=== PATIENT | female | born 1980 | race Caucasian/White ===

== ENCOUNTER 2016-09-29 20:45 | Emergency (ER) | payer OTHER, SELFPAY ==
--- NOTE | ~2016-09-29 | ER ---
PATIENT'S NAME: AIME POTTS [facility] AGE: 36 Y [address] ROOM: [place] [address] LOCATION: [facility] ADMIT DATE: 09/29/2016 ER/Outpatient Report DISCHARGE DATE: 09/29/2016 FAMILY PHYSICIAN: Megan Ellis ATTENDING PHYSICIAN: Bernabe Burgos TIME SEEN: 2100 hours. CHIEF COMPLAINT: Chest pain. HISTORY OF PRESENT ILLNESS: The patient is a 36-year-old female who said that last night she experienced some discomfort in her chest, which she thought probably was just indigestion. Then today at about 3 o'clock after eating a cheeseburger, she began having kind of midsternal chest pain which did radiate to her back and to her right shoulder. She denied any shortness of breath or cough. She did feel somewhat sweaty. Pain described as sharp, stabbing. ALLERGIES: ALLERGIC TO ZOFRAN. CURRENT MEDICATIONS: She did try some simethicone at home. MEDICAL HISTORY: Asthma which has not been a big issue. SURGERIES: She has had previous C-sections. She has had a cyst removed from her neck and mouth. SOCIAL HISTORY: She is a nonsmoker. Denies any alcohol. Her approximately 4 years ago of sudden cardiac arrest. FAMILY HISTORY: No significant coronary artery disease. REVIEW OF SYSTEMS: GENERAL: No recent fever or chills. HEAD AND EENT: Has had CTs and MRI of her neck to rule out a possible cervical disk, which have been negative. RESPIRATORY: No recent cough. No hemoptysis. PATIENT'S NAME: AIME POTTS [facility] AGE: 36 Y [address] ROOM: [place] [address] LOCATION: [facility] ADMIT DATE: 09/29/2016 ER/Outpatient Report DISCHARGE DATE: 09/29/2016 FAMILY PHYSICIAN: Megan Ellis ATTENDING PHYSICIAN: Bernabe Burgos CARDIOVASCULAR: Has had no exertional chest pain. No heart palpitations. GASTROINTESTINAL: Has had some episodic right upper quadrant pain after eating. She has a family history of cholelithiasis. No weight loss. Denies any diarrhea. No change in bowel habits. GENITOURINARY: No dysuria. MUSCULOSKELETAL: Denies any pain in her extremities or calves. PHYSICAL EXAMINATION: VITAL SIGNS: Her blood pressure was 139/89 on admission, her temperature is 97.8, her pulse 68, respirations 20, and O2 saturations 99% on room air. GENERAL APPEARANCE: Appears somewhat anxious. HEENT: Head: Normocephalic. Eyes: PERRL. No icterus. Nose: Septum midline. Mouth: Teeth in good repair. Buccal membranes moist. NECK: No adenopathy. Thyroid was not enlarged. LUNGS: Sounded clear peripherally. HEART: There were no murmurs, thrills, or gallop present. CHEST: She was slightly tender over just right of the sternum. ABDOMEN: Slightly tender right upper quadrant. No masses palpated. EXTREMITIES: No pedal edema. No calf tenderness. SKIN: There was no rash involving the chest. DIAGNOSTIC DATA: EKG showed no significant ischemic changes. Cardiac enzymes were normal. Chest x-ray: Heart size appeared normal. There were no active infiltrates. Mediastinal structures appeared normal. D-dimer was within the normal range at 0.23. Troponin was less than 0.040. CMS: Glucose slightly low at 69, otherwise unremarkable. Magnesium 2.1. Her CPK 74, CK-MB is 0.5, and amylase 47. CBC: White count was 9.9, hemoglobin 12. Her INR was 1. Pro-time 10.5, PTT 26. ASSESSMENT: Atypical chest pain. PLAN: We did give her 2 of morphine IV here in the emergency room, which did give her some relief. She did not get any relief with a GI cocktail. The patient will be discharged home with a script for some [place] for pain 1 or 2 q.4 hours 6 hours. Recommend she follows up with her primary care tomorrow. JONATHAN TRONCOSO FOR MD ABILIO GA/ulices PATIENT'S NAME: AIME POTTS [facility] AGE: 36 Y [address] ROOM: [place] [address] LOCATION: ED ADMIT DATE: 09/29/2016 ER/Outpatient Report DISCHARGE DATE: 09/29/2016 FAMILY PHYSICIAN: Megan Ellis ATTENDING PHYSICIAN: Bernabe Burgos /[id number] d: 09/30/16 0054 t: 10/02/16 1201, OUTPATIENT REPORT
[2016-09-29 21:06] LABS: BASOPHIL # 0.1 K/uL (0.0-0.2); BASOPHIL % 0.8 %; EOSINOPHIL # 0.2 K/uL (0.0-0.5); HEMATOCRIT 37.7 % (33.0-46.0); IMMATURE GRANULOCYTE % 0.3 %; LYMPHOCYTE # 3.3 K/uL (0.8-4.0); MCH 28.7 pg (27.0-34.0); MCHC 31.8 gm/dL (32.0-36.5); MCV 90.2 fl (83.0-98.0); MONOCYTE # 0.6 K/uL (0.0-1.0); MONOCYTE % 5.9 %; MPV 11.2 fl (9.4-12.4); NEUTROPHIL # (ANC) 5.8 K/uL (1.8-7.8); NRBC % 0 /100WBC (0-0.00); PLATELET COUNT 271 K/uL (150-450); RDW-CV 13.2 % (11.9-14.6); WBC 9.9 K/uL (4.0-11.0)
[2016-09-29 21:08] LABS: RBC 4.18 M/uL (3.50-5.50)
[2016-09-29 21:16] LABS: PROTIME 10.5 SECONDS (9.1-10.7); PTT 26 SECONDS (23-30)
[2016-09-29 21:24] LABS: ALK PHOS 55 IU/L (33-138); ALT 20 IU/L (12-78); ANION GAP 13.7 (10.0-19.0); AST 13 IU/L (10-40); BLOOD UREA NITROGEN 16 mg/dL (6-24); CALCIUM 8.8 mg/dL (8.5-10.5); CHLORIDE 109 mMol/L (96-110); CO2 23 mMol/L (22-32); CPK 74 IU/L (21-215); CREATININE 0.9 mg/dL (0.5-1.1); ESTIMATED GFR (MDRD EQUATION) > 60; MAGNESIUM 2.1 mg/dL (1.8-2.6); POTASSIUM 3.7 mMol/L (3.7-5.1); SODIUM 142 mMol/L (135-145); TOTAL BILIRUBIN 0.2 mg/dL (0.0-1.5); TOTAL PROTEIN 7.8 g/dL (6.0-8.4)
== END 2016-09-29 23:05 | disposition disaster alternative care site (69) ==
LOC: GMED 20:45
PROVIDERS: Emergency Medicine
DX: R07.89 Other chest pain (principal); J45.909 Unspecified asthma, uncomplicated; Z88.8 Allergy status to other drugs, medicaments and biological substances; Z98.890 Other specified postprocedural states
CPT/HCPCS: J2270